=== PATIENT | female | born 1990 | race African-American/Black ===

== ENCOUNTER 2019-02-17 06:08 | Inpatient (IN) ==
[2019-02-17] MEDS ORDERED: CITRIC ACID/SODIUM CITRATE 30 ML UDCUP PO ONE (06:17)
[2019-02-17] MEDS ORDERED: FAMOTIDINE 20 MG/2 ML VIAL IV ONE (06:17)
[2019-02-17] MEDS ORDERED: ceFAZolin 3,000 MG in SYRINGE 1 EACH IV ONE (06:30)
[2019-02-17] MEDS: LACTATED RINGERS 1,000 ML IV SCH ×3 (06:35→17:37)
[2019-02-17 06:42] LABS: Basophils % 0.2 % (0.0-0.8); Eosinophils # 0.2 10*3/uL (0.0-0.87); Eosinophils % 1.9 % (0.00-10.9); Hematocrit 35.1 VOL% (35.7-47.0); Hemoglobin 11.4 GM/DL (12.0-16.0); Immature Granulocytes % 1.3 %; Immature Granulocytes Absolute 0.13 #; Lymphocytes # 2.4 10*3/uL (1.4-4.0); Mean Corpuscular HGB Conc 32.5 GM/DL (32-36); Mean Corpuscular Volume 92.4 FL (87-102); Mean Platelet Volume 9.8 FL (9.6-12.0); Monocytes % 7.4 % (1.7-12.7); Neutrophils % 65.2 % (38.7-73.9); Platelet Count 202 T/CUMM (130-400); Red Cell Distribution Width 14.4 % (9.3-17.3); White Blood Count 9.8 T/CUMM (4-12)
[2019-02-17 06:48] LABS: INR 0.9; PT Patient Result 9.9 SECS; Partial Thromboplastin Time 31.3 SECS (0-40)
[2019-02-17] MEDS ORDERED: OXYTOCIN/LR 20 UNIT/1,000 ML BAG IV ONE ×2 (06:56→09:27)
[2019-02-17 07:02] LABS: Albumin 2.9 G/DL (3.4-5.0); Bilirubin,Total 0.7 MG/DL (0.2-1.0); Calcium 9.1 MG/DL (8.5-10.1); Osmolality,Calculated 272.7 MOS/KG (273-304); Total Protein 6.8 G/DL (6.4-8.3)
[2019-02-17] MEDS ORDERED: miSOPROStol 200 MCG TABLET ONE (07:48)
[2019-02-17] MEDS ORDERED: TRANEXAMIC ACID 1,000 MG/10 ML VIAL ONE (07:48)
[2019-02-17] MEDS ORDERED: CARBOPROST TROMETHAMINE 250 MCG/ML AMP IM ONE (07:49)
[2019-02-17] MEDS ORDERED: METHYLERGONOVINE 0.2 MG/1 ML AMP ONE (07:49)
[2019-02-17 09:18] LABS: Cord Venous Blood HCO3 22.1 MMOL/L; Cord Venous Blood PCO2 54.5 MMHG; Cord Venous Blood PO2 46.3
[2019-02-17 09:22] LABS: Apearance,Urine CLEAR (Clear); Bilirubin,Urine Negative (Negative); Blood, Urine Small mg/dL (Negative); Glucose,Urine (UA) Negative (Negative); Ketones,Urine Negative (Negative); Mucus,Urine Occasional /LPF (Occasional); Nitrite,Urine Negative (Negative); Protein,Urine Negative; RBC,Urine 15 /HPF (0-4); Squamous Epithelial Cell,Urine Occasional /HPF (0-10); Urine Color Yellow (Yellow); Urine Specific Gravity 1.023 (1.001-1.035); Urine Urobilinogen < 2.0 EU/DL (0.2-1.0); WBC,Urine <1 /HPF (0-6)
[2019-02-17] MEDS ORDERED: SIMETHICONE CHEW 80 MG TABLET PO PRN (09:27)
[2019-02-17] MEDS ORDERED: ONDANSETRON 4 MG/2 ML VIAL IV PRN (09:27)
[2019-02-17] MEDS ORDERED: RHO(D) IMMUNE GLOBULIN 300 MCG SYRINGE IM ONE (09:27)
[2019-02-17] MEDS ORDERED: ACETAMINOPHEN 325 MG TABLET PO PRN (09:27)
[2019-02-17] MEDS ORDERED: ceFAZolin 1,000 MG in SYRINGE 1 EACH IV SCH (09:30)
[2019-02-17] MEDS ORDERED: HYDROmorphone 2 MG/1 ML VIAL IV ONE (10:21)
[2019-02-17] MEDS ORDERED: MIDAZOLAM 2 MG/2 ML VIAL ONE (10:42)
[2019-02-17] MEDS ORDERED: SEVOFLURANE 1 UNIT/15 MINUTE INH ONE (10:42)
[2019-02-17] MEDS ORDERED: fentaNYL 100 MCG/2 ML VIAL ONE (10:43)
[2019-02-17] MEDS ORDERED: ONDANSETRON 4 MG/2 ML VIAL ONE ×2 (10:43→10:50)
[2019-02-17] MEDS ORDERED: ROCURONIUM 100 MG/10 ML VIAL IV ONE (10:43)
[2019-02-17] MEDS ORDERED: BUPIVACAINE 0.5% 50 ML VIAL ONE (10:45)
[2019-02-17] MEDS ORDERED: PROPOFOL 200 MG/20 ML VIAL IV ONE (10:45)
[2019-02-17] MEDS ORDERED: BUPIVACAINE SPINAL 0.75% 2 ML AMP SPINAL ONE (10:45)
[2019-02-17] MEDS ORDERED: MORPHINE 10 MG/10 ML VIAL ONE (10:48)
[2019-02-17] MEDS ORDERED: GLYCOPYRROLATE 0.4 MG/2 ML VIAL ONE (10:49)
[2019-02-17] MEDS ORDERED: DEXAMETHASONE 4 MG/1 ML VIAL ONE (10:49)
[2019-02-17] MEDS ORDERED: KETOROLAC 60 MG/2 ML VIAL IM ONE (10:49)
[2019-02-17] MEDS ORDERED: LACTATED RINGERS 1,000 ML IV ONE (10:49)
[2019-02-17] MEDS ORDERED: ESMOLOL 100 MG/10 ML VIAL IV ONE (10:49)
[2019-02-17] MEDS ORDERED: NEOSTIGMINE 10 MG/10 ML VIAL ONE (10:49)
[2019-02-17] MEDS ORDERED: SUCCINYLCHOLINE 200 MG/10 ML VIAL ONE (10:56)
[2019-02-17] MEDS: ceFAZolin 1,000 MG in SYRINGE 1 EACH IV SCH (17:30)
[2019-02-17] MEDS: IBUPROFEN 800 MG TABLET PO PRN (17:46)
[2019-02-17] MEDS ORDERED: ZALEPLON 5 MG CAPSULE PO PRN (18:53)
[2019-02-17 21:59] LABS: Basophils % 0.2 % (0.0-0.8); Eosinophils % 0.2 % (0.00-10.9); Immature Granulocytes % 0.7 %; Immature Granulocytes Absolute 0.09 #; Lymphocytes # 2.5 10*3/uL (1.4-4.0); Lymphocytes % 18.8 % (21.3-54.2); Mean Corpuscular Volume 93.3 FL (87-102); Mean Platelet Volume 10.2 FL (9.6-12.0); Monocytes % 6.7 % (1.7-12.7); Neutrophils % 73.4 % (38.7-73.9); Platelet Count 172 T/CUMM (130-400); Red Blood Count 2.68 MC/CUMM (3.8-5.5); Red Cell Distribution Width 14.3 % (9.3-17.3); White Blood Count 13.2 T/CUMM (4-12)
[2019-02-17] MEDS: DOCUSATE SODIUM 100 MG CAPSULE PO SCH (22:22)
[2019-02-18] MEDS ORDERED: SODIUM CHLORIDE 0.9% 50 ML IV ONE (01:56)
[2019-02-18] MEDS: ceFAZolin 1,000 MG in SYRINGE 1 EACH IV SCH (02:00)
[2019-02-18 04:46] LABS: Basophils % 0.1 % (0.0-0.8); Eosinophils # 0.1 10*3/uL (0.0-0.87); Eosinophils % 0.8 % (0.00-10.9); Hematocrit 24.3 VOL% (35.7-47.0); Hemoglobin 7.9 GM/DL (12.0-16.0); Immature Granulocytes % 0.6 %; Immature Granulocytes Absolute 0.07 #; Lymphocytes # 2.3 10*3/uL (1.4-4.0); Lymphocytes % 20.7 % (21.3-54.2); Mean Corpuscular HGB Conc 32.5 GM/DL (32-36); Mean Corpuscular Volume 93.8 FL (87-102); Mean Platelet Volume 10.1 FL (9.6-12.0); Monocytes % 7.4 % (1.7-12.7); Neutrophils % 70.4 % (38.7-73.9); Platelet Count 160 T/CUMM (130-400); Red Blood Count 2.59 MC/CUMM (3.8-5.5); Red Cell Distribution Width 14.3 % (9.3-17.3)
[2019-02-18] MEDS: LACTATED RINGERS 1,000 ML IV SCH ×3 (05:17→05:18)
[2019-02-18] MEDS: MAGNESIUM HYDROXIDE SUSP 30 ML UDCUP PO PRN ×2 (08:56→20:36)
[2019-02-18] MEDS: DOCUSATE SODIUM 100 MG CAPSULE PO SCH ×2 (08:58→20:36)
[2019-02-18] MEDS: MULTIVITAMIN (PRENATAL) TABLET PO SCH (08:58)
[2019-02-18] MEDS: FERROUS SULFATE 325 MG TABLET PO SCH ×3 (08:59→20:36)
[2019-02-18] MEDS: IBUPROFEN 800 MG TABLET PO PRN (17:29)
[2019-02-19] MEDS: IBUPROFEN 800 MG TABLET PO PRN ×3 (05:11→20:27)
[2019-02-19] MEDS: FERROUS SULFATE 325 MG TABLET PO SCH ×3 (08:41→20:27)
[2019-02-19] MEDS: DOCUSATE SODIUM 100 MG CAPSULE PO SCH ×2 (08:41→20:27)
[2019-02-19] MEDS: MULTIVITAMIN (PRENATAL) TABLET PO SCH (08:41)
[2019-02-19] MEDS: MAGNESIUM HYDROXIDE SUSP 30 ML UDCUP PO PRN (20:27)
[2019-02-20] MEDS: IBUPROFEN 800 MG TABLET PO PRN (05:56)
[2019-02-20 07:37] VITALS: BP 135/79
[2019-02-20] MEDS: MULTIVITAMIN (PRENATAL) TABLET PO SCH (09:01)
[2019-02-20] MEDS: FERROUS SULFATE 325 MG TABLET PO SCH (09:01)
[2019-02-20] MEDS: DOCUSATE SODIUM 100 MG CAPSULE PO SCH (09:01)
[2019-02-20] MEDS: MAGNESIUM HYDROXIDE SUSP 30 ML UDCUP PO PRN (09:01)
[2019-02-20] MEDS ORDERED: DIPH/TET/ACEL PERT BOOSTER VACCINE 0.5 ML VIAL IM ONE (10:30)
== END 2019-02-20 12:40 | disposition home or self-care (01) | DRG 540 ==
LOC: N.LD 06:08 → N.OB 13:18
PROVIDERS: ADMIT Obstetrics & Gynecology; ATTEND Obstetrics & Gynecology
PROC: LDCSECT (ICD-10-PCS; 2019-02-17 08:15)